=== PATIENT | male | born 1970 | race Two or more races ===

== ENCOUNTER 2017-07-16 18:15 | Emergency (ER) | payer SELFPAY ==
[~2017-07-16] VITALS: Ht 180.3 cm; Wt 95.3 kg
[2017-07-16 18:41] VITALS: BP 134/92
[2017-07-17] MEDS ORDERED: KETOROLAC TROMETH 60MG/2ML VIAL IM ONE (00:15)
[2017-07-17] MEDS ORDERED: IBUPROFEN 800 MG TAB PO ONE (00:15)
== END 2017-07-17 01:10 | disposition home or self-care (01) ==
LOC: ER 18:15
DX: S96.912A Strain of unspecified muscle and tendon at ankle and foot level, left foot, initial encounter (principal); X50.0XXA Overexertion from strenuous movement or load, initial encounter; Y93.89 Activity, other specified; Y99.8 Other external cause status; Y92.89 Other specified places as the place of occurrence of the external cause
CPT/HCPCS: 29515; 73610; 96372; 99284; J1885